=== PATIENT | female | born 1970 | race Two or more races ===

== ENCOUNTER 2025-05-25 19:11 | Emergency (ER) | payer MEDICAID, OTHER ==
[~2025-05-25] VITALS: Ht 165.1 cm; Wt 81.9 kg
--- NOTE | 2025-05-25 19:25 | ECG ---
[facility] Test Date: 2025-05-25 Test Time: 19:24:39 Pat Name: KAIDEN CABELLO Department: ER Room: Gender: F Funder: : 1970 Requested By: GINETTE PERKINS Order Number: [id number] Reading MD: Devin Sanchez Measurements Intervals [place] Rate: 92 P: 55 MA: 183 QRS: 68 QRSD: 124 T: 33 QT: 377 QTc: 467 Interpretive Statements Sinus rhythm Probable left atrial enlargement IVCD, consider atypical RBBB ST elev, probable normal early repol pattern Electronically Signed On 05-27-2025 22:05:56 PDT by Devin Sanchez Please click the below link to view image of tracing.
[2025-05-25 20:04] LABS: Urine Protein, UAD Negative (Negative)
[2025-05-25 20:24] LABS: Amphetamine Screen, Urine Neg (NEGATIVE); Barbiturate Scree,Urine Neg (NEGATIVE); Benzodiazephine Screen, Urine Neg (NEGATIVE); Cannabinoid Screen, Urine Neg (NEGATIVE); Cocaine Screen, Urine Neg (NEGATIVE); Opiate Scree,Urine Neg (NEGATIVE); Phencyclidine Screen, Urine Neg (NEGATIVE)
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
[2025-05-25] MEDS: HYDROcodone-ACET 10/325MG TAB PO ONE (21:09)
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
[2025-05-25] MEDS ORDERED: IBUP-1455 PO (22:16)
[2025-05-25] MEDS ORDERED: NITR-87 PO (22:16)
[2025-05-25] MEDS ORDERED: HYDR-4798 PO (22:16)
[2025-05-25 23:08] VITALS: BP 134/79; PULSE 92; RESP 18; TEMP 98; O2SAT 95
== END 2025-05-25 23:16 | disposition home or self-care (01) ==
LOC: ER 19:11
DX: S20.219A Contusion of unspecified front wall of thorax, initial encounter (principal); N39.0 Urinary tract infection, site not specified; Z88.0 Allergy status to penicillin; Z79.899 Other long term (current) drug therapy; V89.2XXA Person injured in unspecified motor-vehicle accident, traffic, initial encounter; Y93.I9 Activity, other involving external motion; Y92.488 Other paved roadways as the place of occurrence of the external cause; Y99.8 Other external cause status
CPT/HCPCS: 71046; 80307; 81001; 93005